=== PATIENT | female | born 1970 | race Caucasian/White ===

== ENCOUNTER → 2017-04-09 | Outpatient (CLI) | payer OTHER | LOC: FIMAGING 11:42 | PROVIDERS: ATTEND Family Medicine | DX: Z12.31 Encounter for screening mammogram for malignant neoplasm of breast (principal) | CPT/HCPCS: G0202 ==

== ENCOUNTER 2017-10-17 14:12 | Emergency (ER) | payer OTHER ==
[2017-10-17 14:17] VITALS: RESP 16
--- NOTE | 2017-10-17 14:43 | EDPHY ---
H & P Time Seen by Provider: 10/17/17 14:38 HPI/ROS: CHIEF COMPLAINT: Left shoulder injury HISTORY OF PRESENT ILLNESS: Patient fell snowboarding and landed right on her shoulder injuring which she feels is her collarbone or clavicle. More pain with motion of the shoulder but no elbow wrist or hand symptoms. REVIEW OF SYSTEMS: No numbness or weakness in the hand. PAST MEDICAL HISTORY: Negative Social history: Here with family General Appearance: Alert and conversant, cooperative. Left hand has normal motor and sensory and radial ulnar and median nerve distributions. Normal radial pulse. No left hand wrist forearm elbow or humerus tenderness. No pain with elbow flexion or extension and no pain with rotation of the shoulder. She has tenderness in the mid clavicular area with a little bit of crepitus but no tenting of the skin. Emergency Department course/MDM: Declined pain medication. X-ray of the left clavicle and shoulder is ordered. 1515: X-rays reviewed with the patient. Mandatory orthopedic follow-up to discuss treatment options including conservative versus ORIF. Declined pain medication prescription. Smoking Status: Never smoked Constitutional: Initial Vital Signs Temperature (C) 36.5 C 10/17/17 14:14 Heart Rate 55 L 10/17/17 14:14 Respiratory Rate 16 10/17/17 14:14 Blood Pressure 112/68 10/17/17 14:14 O2 Sat (%) 99 10/17/17 14:14 O2 Delivery Mode Room Air Allergies/Adverse Reactions: No Known Allergies Allergy (Unverified 10/17/17 14:14) Home Medications: Medication Instructions Recorded NK [No Known Home Meds] 10/17/17 MDM/Departure - Depart Disposition: Home, Routine, Self-Care Clinical Impression: Fracture of clavicle, left, closed Qualifiers: Encounter type: initial encounter Clavicle location: shaft Fracture alignment: displaced Qualified Code(s): S42.022A - Displaced fracture of shaft of left clavicle, initial encounter for closed fracture Condition: Good Instructions: Clavicle Fracture (ED) Additional Instructions: Follow-up this week with referral orthopedic surgeon to discuss treatment options. Referrals: Lukasz Caldera MD [Medical Doctor] - 2-3 days, call for appt.
[2017-10-17 15:38] VITALS: BP 136/65; PULSE 60; TEMP 97.9; O2SAT 96
== END 2017-10-17 15:37 | disposition home or self-care (01) ==
DX: S42.022A Displaced fracture of shaft of left clavicle, initial encounter for closed fracture (principal); V00.311A Fall from snowboard, initial encounter; Y93.23 Activity, snow (alpine) (downhill) skiing, snowboarding, sledding, tobogganing and snow tubing
CPT/HCPCS: A4565